=== PATIENT | male | born 1965 | race Two or more races ===

== ENCOUNTER 2021-08-02 07:52 | Outpatient (REF) | payer OTHER, SELFPAY ==
--- NOTE | ~2021-08-02 | US_ITS ---
EXAMINATION: US RETROPERITONEAL LIMITED (RENAL ONLY) CLINICAL INFORMATION: Calculus of kidney. COMPARISON: Ultrasound 02/17/2020, 02/27/2019 and 02/15/2019. TECHNIQUE: Real-time imaging of the kidneys. FINDINGS: RIGHT KIDNEY: 10.9 x 5.8 x 5.2 cm (SAG x AP x TRV). The kidney is normal in size, contour, and echogenicity. Renal cortical thickness is normal. No calculi or focal parenchymal lesions. No hydronephrosis. LEFT KIDNEY: 10.3 x 5.0 x 5.8 cm (SAG x AP x TRV). The kidney is normal in size, contour, and echogenicity. Renal cortical thickness is normal. No calculi or focal parenchymal lesions. No hydronephrosis. There are 2 anechoic cysts. A mid pole cyst measures 1.8 x 0.9 x 1.1 cm and an upper pole lateral cyst measures 1.5 x 1.4 x 1.5 cm. US/US renal BI IMPRESSION: Two anechoic cysts upper and mid pole left kidney now measuring 1.5 cm and 1.8 cm, respectively. There are no echogenic stones or hydronephrosis.
== END 2021-08-02 07:53 | disposition home or self-care (01) ==
LOC: HO.US 07:52
PROVIDERS: PCP Internal Medicine; Visit Provider Urology
DX: N20.0 Calculus of kidney (principal)
CPT/HCPCS: 76775

== ENCOUNTER → 2021-08-18 13:42 | Outpatient (BNVA) | payer OTHER, SELFPAY | PROVIDERS: Visit Provider Urology ==

== ENCOUNTER 2022-07-22 16:05 | Outpatient (REF) | payer OTHER, SELFPAY ==
--- NOTE | ~2022-07-22 | US_ITS ---
EXAMINATION: US RETROPERITONEAL LIMITED (RENAL ONLY) CLINICAL INFORMATION: Cyst of kidney, acquired. COMPARISON: Ultrasound retroperitoneal limited (renal only) 08/02/2021 TECHNIQUE: Real-time imaging of the kidneys. FINDINGS: RIGHT KIDNEY: 10.4 x 4.3 x 4.5 cm (SAG x AP x TRV). The kidney is normal in size, contour, and echogenicity. Renal cortical thickness is normal. No calculi or focal parenchymal lesions. No hydronephrosis. LEFT KIDNEY: 11.0 x 4.6 x 3.8 cm (SAG x AP x TRV). The kidney is normal in size, contour, and echogenicity. Renal cortical thickness is normal. No renal calculi or hydronephrosis. Benign-appearing renal cysts measuring up to 1.5 cm, no follow-up imaging recommended. US/US renal BI IMPRESSION: No hydronephrosis or nephrolithiasis.
== END 2022-07-22 16:06 | disposition home or self-care (01) ==
LOC: HO.US 16:05
PROVIDERS: Visit Provider Urology
DX: N28.1 Cyst of kidney, acquired (principal)
CPT/HCPCS: 76775

== ENCOUNTER → 2022-09-02 13:53 | Outpatient (BNVA) | payer OTHER, SELFPAY | PROVIDERS: Visit Provider Urology | DX: Z13.89 Encounter for screening for other disorder (principal) ==

== ENCOUNTER → 2023-03-08 13:59 | Outpatient (BNVA) | payer OTHER, SELFPAY | PROVIDERS: Visit Provider Urology | DX: N52.9 Male erectile dysfunction, unspecified (principal); N40.1 Benign prostatic hyperplasia with lower urinary tract symptoms; N13.8 Other obstructive and reflux uropathy | CPT/HCPCS: 99212 ==

== ENCOUNTER 2023-11-14 15:15 | Outpatient (AMB) | payer OTHER, SELFPAY ==
--- NOTE | 2023-11-14 15:18 | A.OFFVIS_ITS ---
Intake Intake Visit Reasons: 6M Follow Up(Confirmed) Intake Note: Patient is Present for Telephone Follow Up For Urology Med: Tadalafil Antibiotic Allergy: None Blood Thinner: None Allergies No Known Allergies [No Known Allergies*] Allergy (Verified 11/14/23 15:19) Medication List - Last Reconciled 11/14/23 by Kamran Prajapati MD tadalafil 5 mg PO DAILY PRN 90 days tadalafil 20 mg PO ONCE PRN 30 days HPI HPI Comments History of Present Illness Details Roe is a pleasant male. He is seen for the following urologic conditions - erectile dysfunction - renal cyst Welsh translation provided by qualified medical equipment technician Telemedicine Evaluation 15 min Consultation [employer] [place] Video attempted Effective response to 5 mg Cialis every day with 20 mg on demand Continue prescription Erectile dysfunction Good response to daily Cialis 5 mg with 20 mg on demand prescription provided Also works for his BPH Renal cyst Imaging showed 2x 2 cm left renal cyst Stable from prior imaging Imaging - 09/01 renal ultrasound to stable cyst Continue surveillance PFSH Medical History Erectile dysfunction Social History Alcohol intake: never Patient Tobacco Use Status: Former Tobacco user Review of Systems Const All systems reviewed & are unremarkable except as noted in HPI and below Reports no additional complaints Resp Reports no additional complaints GI Reports no additional complaints Reports as per HPI Musc Reports no additional complaints Physical Exam Telemedicine evaluation Appropriate responses Regular breathing rate and rhythm HEENT Head: Yes normal to inspection Ears: hearing grossly normal bilaterally Eyes General: appearance normal, both eyes and all related structures Neck Neck: Yes normal visual inspection Chest Chest palpation & inspection: normal inspection of the chest Resp Effort & Inspection: normal respiratory effort and able to speak in complete sentences Assessment & Plan Assessment & Plan (1) Erectile dysfunction: Code(s): N52.9 - Male erectile dysfunction, unspecified (2) BPH w urinary obs/LUTS: Code(s): N40.1 - Benign prostatic hyperplasia with lower urinary tract symptoms; N13.8 - Other obstructive and reflux uropathy Plan Six-month follow-up Medications: Refilled tadalafil 5 mg PO DAILY PRN 90 tabs 1RF sexual activity 90 days N52.9 - Male er ectile dysfunction, unspecified tadalafil On demand medication take 60 minutes before intended activity 20 mg PO ONCE PRN 30 tabs 0RF sexual activity 30 days E11.69 - Type 2 diabetes mellitus with other specified complication, N52.1 - Erectile dysfunction due to diseases classified elsewhere Patient Instructions: Imaging studies, laboratory and physical exam results were discussed and reviewed in detail. No major barriers to patient understanding were identified. An opportunity to ask questions regarding the treatment plan was provided. All questions were answered. The patient expressed understanding and agreement with the above treatment plan. The patient is aware they should contact our office by phone for worsening of their current condition or the appearance of new urologic symptoms. Compliance is encouraged with any medications and followup testing that is ordered. It is a privilege to participate in the urologic care of your patient. If you have any questions or concerns regarding treatment for the above conditions, or other urologic issues, please do not hesitate to contact me. The office telephone contact is [phone]. This note is constructed using voice recognition software. While every effort has been made to ensure accuracy payroll and benefits manager errors may have been included. Yours sincerely, Dr Kamran Prajapati MD, [facility] - Urology Providers of Expert, Compassionate Care for the Genitourinary System Telehealth Telehealth Location of provider rendering services: practice address Location of patient: address on file Patient Identification confirmed using: Name, : Yes Telehealth method: video Patient verbally consented to treatment: Yes Patient verbally consented to billing insurance company: Yes Patient informed of any privacy concerns related to visit: Yes Coding Level of Care Code Tele Est Pt Level 3 (70597) Diagnoses Erectile dysfunction N52.9 BPH w urinary obs/LUTS N40.1; N13.8
== END 2023-11-14 16:24 | disposition home or self-care (01) ==
LOC: HO.HUSH 15:16
PROVIDERS: Visit Provider Urology
DX: N52.9 Male erectile dysfunction, unspecified (principal); N40.1 Benign prostatic hyperplasia with lower urinary tract symptoms; N13.8 Other obstructive and reflux uropathy
CPT/HCPCS: 99213

== ENCOUNTER → 2023-11-14 15:15 | Outpatient (BNVA) | payer OTHER, SELFPAY | PROVIDERS: Visit Provider Urology ==

== ENCOUNTER 2024-03-11 06:16 | Emergency (ER) | payer OTHER, SELFPAY ==
--- NOTE | ~2024-03-11 | CT_ITS ---
EXAMINATION: CT ABDOMEN AND PELVIS WITHOUT CONTRAST CLINICAL INFORMATION: Left flank pain and hematuria COMPARISON: Renal ultrasound 07/22/2022 TECHNIQUE: Multidetector volumetric imaging was performed from the superior aspect of the liver through the pubic symphysis. Sagittal and coronal reformatted images were obtained on the technologist's workstation. This CT examination was performed using dose optimization techniques as appropriate, variously including the following: *Automated exposure control *Adjustment of mA and/or kV according to patient size (this includes techniques or standardized protocols for targeted exams where dose is matched to indication/reason for exam; i.e. extremities or head) *Use of iterative reconstruction technique DLP: 388 mGy-cm FINDINGS: LUNG BASES: The visualized lung bases are unremarkable. LIVER, GALLBLADDER, AND BILIARY TREE: The liver is normal in size, shape, and attenuation. No focal hepatic lesion or biliary ductal dilatation is present. The gallbladder is unremarkable with no evidence of radiopaque gallstones, gallbladder wall thickening, or obvious pericholecystic inflammatory changes. PANCREAS: Unremarkable. SPLEEN: Unremarkable. ADRENAL GLANDS: Unremarkable. KIDNEYS AND URETERS: The kidneys are normal in size, shape, and attenuation. There is an obstructing left mid ureteral calculus measuring 4 mm in size associated with hydronephrosis and perinephric stranding. There is a nonobstructing 2 mm calculus at the lower pole of the left kidney. There is a 2 mm nonobstructing calculus also at the lower pole of the right kidney. No right-sided hydronephrosis. 2 benign Bosniak class I renal cysts are noted which require no additional imaging or follow-up. No solid renal masses are seen. BLADDER: Unremarkable. GASTROINTESTINAL TRACT: The small and large bowel are unremarkable. There is no evidence of appendicitis. ABDOMINAL WALL: No significant hernia is appreciated. LYMPH NODES: Normal. VASCULAR: Unremarkable. PELVIC VISCERA: Unremarkable. OSSEOUS STRUCTURES: Unremarkable. CT/CT abdomen pelvis wo IV con IMPRESSION: 1. Obstructing 4 mm left mid ureteral calculus with associated hydronephrosis and perinephric stranding. 2. Bilateral nonobstructing small 2mm renal calculi. Fleischner guidelines were followed.
[2024-03-11 06:24] VITALS: BP 137/83; PULSE 71; RESP 17; TEMP 36.5; O2SAT 97; BMI 23.2
[2024-03-11 07:27] LABS: Appearance Urine Clear; Color Urine Yellow; Glucose Urine UA Negative (Negative); Leukocyte Esterase Urine Negative (Negative); Nitrite Urine Negative (Negative); Specific Gravity - Urine <= 1.005 (1.005-1.025); UMIC TRIGGER UACC YES; Urine Blood Small (1+) (Negative); Urine Ketones Negative (Negative); Urine Protein Negative (Neg-Trace)
[2024-03-11 07:29] LABS: MANUAL DIFF FLAG NO
--- NOTE | 2024-03-11 07:31 | ED.ABDPAIN ---
HPI - Abdominal Pain General Chief Complaint: Abdominal Pain Stated Complaint: kidney stone? Time Seen by Provider: 03/11/24 07:31 Source: patient Mode of arrival: ambulatory Limitations: no limitations History of Present Illness ED Provider: Margie VASQUEZ HPI narrative: This is a 58-year-old male history of kidney stones, erectile dysfunction, renal cyst, BPH with urinary obstruction/ LUTS presenting w/ L sided flank pain and blood in urine X 4 days. Patient reprots he has a hx of kidney stones and this feels like his last kidney stone. Patient denies nausea, vomiting, abd pain, headache, vision changes, dizziness, weakness, fevers, chills. Related Data Previous Rx's ?Medication ?Instructions ?Recorded tadalafil 20 mg tablet 20 mg PO ONCE PRN sexual activity 11/14/23 30 days #30 tabs tadalafil 5 mg tablet 5 mg PO DAILY PRN sexual activity 11/14/23 90 days #90 tabs ketorolac 10 mg tablet 10 mg PO TID PRN pain 5 days #15 03/11/24 tabs levofloxacin 750 mg tablet 750 mg PO DAILY 7 days #7 tabs 03/11/24 prednisone 20 mg tablet 20 mg PO DAILY 5 days #5 tabs 03/11/24 tamsulosin 0.4 mg capsule (Flomax) 0.4 mg PO DAILY 2 weeks #14 caps 03/11/24 Allergies Allergy/AdvReac Type Severity Reaction Status Date / Time No Known Allergies Allergy Verified 03/11/24 06:27 [No Known Allergies*] Review of Systems Review of Systems Yes all other systems are reviewed and are negative PMFSH Past Medical History Attestation statement: The following information was validated with the patient. Source: old records reviewed and nursing notes reviewed Medical History Erectile dysfunction Social History Social History Alcohol intake: never Patient Tobacco Use Status: Former Tobacco user Advance Directives: No Do you have a plan to hurt others: No Plan Physical Exam ED Vital Signs: Vital Signs - 24 hr 03/11/24 06:24 03/11/24 10:19 Temperature 97.7 F 97.6 F Pulse Rate 71 62 Respiratory Rate 17 16 Blood Pressure 137/83 114/72 Pulse Oximetry 97 96 Oxygen Delivery Method Room Air Room Air BMI result Body Mass Index 23.2 vss Appearance: Alert.? Oriented X3.? No acute distress.? Head: Normocephalic, atraumatic, no step-offs or deformities Eyes: Pupils equal, round and reactive to light.? ENT: Pharynx normal.? Neck: Normal inspection.? Neck supple.? CVS: Normal heart rate and rhythm.? Pulses normal.? Respiratory: No respiratory distress.? Breath sounds normal.? Abdomen: Soft and nontender.? Skin: Skin warm and dry.? Normal skin color.? Normal skin turgor.? Extremities: No lower extremity edema.? No calf ttp. 5/5 strength to bilateral upper and lower extremities Back: No midline tenderness, no C-spine tenderness, full range of motion, + L sided CVA tenderness on exam Neuro: Oriented X 3.? No motor deficit.? No sensory deficit. CN 2-12 intact Course Reevaluation(s) Reevaluation #1: CBC unremarkable. Chemistry no acute findings requiring intervention. UA with small amount of blood. CT abdomen pelvis with obstructing 4 mm left mid ureteral calculus with associated hydronephrosis and perinephric stranding. Bilateral nonobstructing small 2 mm renal calculi. Patient does have left-sided CVA tenderness will cover with Levaquin. [place] text Urology for input. Time: 08:49 Reevaluation #2: Upon re-evaluation pain is controlled with Toradol Time: 08:51 Reevaluation #3: Urology recommends another L of fluid and then revaluation. If pain well controlled can DC w/ levofloxacin, flomax and outpatient follow up. Time: 08:53 Medical Decision Making Medical Decision Making [facility] Narrative: 0734 58-year-old male presents with left-sided flank pain x4 days and blood in urine. History of kidney stones. Physical exam concerning for left-sided CVA tenderness. History and physical exam concerning for kidney stone versus obstructive uropathy versus hematuria versus pyelonephritis. Unlikely acute abdomen, cauda equina, epidural abscess, cord compression. Will rule out metabolic derangements, urinary infection. Plan labs, imaging, urine. Differential Diagnosis Differential Diagnoses: The differential diagnosis associated with the presentation includes History and physical exam concerning for kidney stone versus obstructive uropathy versus hematuria versus pyelonephritis. Unlikely acute abdomen, cauda equina, epidural abscess, cord compression. Will rule out metabolic derangements, urinary infection. Admission/Observation Consideration of admission/observation: Escalation of care including admission/observation considered Possible Lab Data MDM Lab Attestation statement: I reviewed the patient's lab results. 03/11/24 07:25 03/11/24 07:25 Labs: Lab Results 03/11/24 03/11/24 Range/Units 07:17 07:25 WBC 8.9 (4.8-10.8) X10*3/uL RBC 4.78 (4.60-5.80) X10*6/uL Hgb 15.2 (14.0-18.0) g/dl Hct 44.2 (42.0-52.0) % MCV 92.5 (80.0-98.0) fL MCH 31.8 (27.0-33.0) pg MCHC 34.4 (31.0-36.0) g/dl RDW 12.0 (11.0-16.0) % Plt Count 241 (160-400) X10*3/uL MPV 9.8 (9.4-12.4) fL Immature Gran % (Auto) 0.2 (0.0-0.4) % Neut % (Auto) 71.9 (45-73) % Lymph % (Auto) 17.6 L (20-40) % Glenn % (Auto) 9.3 (2-11) % Eos % (Auto) 0.8 (0-4) % Baso % (Auto) 0.2 (0-2) % Lymph # (Auto) 1.6 (1.2-4.9) X10*3/uL Glenn # (Auto) 0.8 (0.1-1.2) X10*3/uL Eos # (Auto) 0.1 (0.0-0.4) X10*3/uL Baso # (Auto) 0.0 (0.0-0.2) X10*3/uL Abs Immat Gran (auto) 0.02 (0.00-0.03) X10*3/uL Absolute Neuts (auto) 6.4 (2.0-8.3) x10*3/uL Absolute Nucleated RBC 0.000 (0.0-0.012) X10*3/uL Nucleated RBC % (auto) 0.0 (0.0-0.2) /100WBC Sodium 139 (135-145) mmol/L Potassium 4.6 (3.3-5.1) mmol/L Chloride 106 (96-108) mmol/L Carbon Dioxide 26 (22-29) mmol/L Anion Gap 12 (12-20) BUN 18 H (9-16) mg/dL Creatinine 1.13 (0.5-1.4) mg/dL Estim Creat Clear Calc 77.7 Estimated GFR > 60 Random Glucose 102 (60-115) mg/dL Calcium 9.4 (8.4-10.2) mg/dL Magnesium 2.2 (1.6-2.6) mg/dL Total Bilirubin 0.3 (0.0-1.0) mg/dL Direct Bilirubin 0.1 (0.0-0.5) mg/dL AST 23 (5-37) U/L ALT 17 (0-40) U/L Alkaline Phosphatase 88 (39-117) U/L Total Protein 7.6 (6.5-8.0) g/dL Albumin 4.1 (3.5-5.0) g/dL Lipase 19 (8-78) U/L Urine Color Yellow Urine Appearance Clear Urine pH 6.0 (5.0-9.0) Ur Specific [place] <= 1.005 (1.005-1.025) Urine Protein Negative (Neg-Trace) mg/dL Urine Glucose (UA) Negative (Negative) mg/dL Urine Ketones Negative (Negative) mg/dL Urine Blood Small (1+) H (Negative) Urine Nitrite Negative (Negative) Ur Leukocyte Esterase Negative (Negative) Urine RBC 0-2 (0-2) /HPF Urine WBC 0-5 (0-5) /HPF Ur Squamous Epith Cells 0-2 (0-2) /HPF Urine Bacteria None Seen (None Seen) Hyaline Casts 0-2 (0-2) /LPF Independent Interpretation I performed an independent interpretation of an: CT Scan (CT/CT abdomen pelvis wo IV con IMPRESSION: 1. Obstructing 4 mm left mid ureteral calculus with associated hydronephrosis and perinephric stranding. 2. Bilateral nonobstructing small 2mm renal calculi. Fleischner guidelines were followed.) Radiology Impression Discussion of test interpretation with radiology: I have reviewed the radiologist's reading. Medications Administered Discontinued Medications Generic Name Dose Route Start Last Admin Trade Name Moody PRN Reason Stop Dose Admin Sodium Chloride 500 mls @ 500 mls/hr 03/11/24 07:45 03/11/24 09:22 Ns IV 03/11/24 08:44 Infused .Q1H CINDY Infusion Sodium Chloride 1,000 mls @ 999 mls/hr 03/11/24 07:45 03/11/24 09:23 Ns IV 03/11/24 08:45 Infused .Q1H1M CINDY Infusion Ketorolac Tromethamine 30 mg 03/11/24 07:57 03/11/24 08:03 Ketorolac Tromethamine 15 Mg/Ml Vial IVPUSH 03/11/24 07:58 30 mg ONCE ONE Administration Prednisone 20 mg 03/11/24 07:31 03/11/24 08:03 Prednisone 20 Mg Tablet PO 03/11/24 07:32 20 mg ONCE ONE Administration Tamsulosin HCl 0.4 mg 03/11/24 07:31 03/11/24 08:03 Tamsulosin Hcl 0.4 Mg Capsule PO 03/11/24 07:32 0.4 mg ONCE ONE Administration Critical Care Time Critical Care Time Critical Care Time: Yes Total Critical Care Time: 35 Attestation: I attest to this time spent taking care of the patient, obtaining history, physical, reviewing labs, imaging, speaking to my attending, specialist or hospitalist. Discharge Plan Discharge Clinical Impression: Calculus of kidney Patient Disposition: Home, Self-Care Instructions: Kidney Stones (ED) Additional Instructions: Take your medications as prescribed. If you were prescribed antibiotics today, it is important that you take your medication to their entirety, do not skip any doses, do not finish them early. Follow-up with your primary care provider this week. Return to the emergency department with new or worsening symptoms. Such as fevers, chills, chest pain, shortness of breath, nausea, vomiting, dizziness, headache, vision changes, lethargy In case of emergency call 911 Toradol has been sent to your pharmacy, you tolerated this well in the department. Please take this as prescribed do not take this with ibuprofen, or other NSAIDs, do not mix this with alcohol. Side effects of this medication including increased risk for bleeding and possible kidney injury. CT/CT abdomen pelvis wo IV con IMPRESSION: 1. Obstructing 4 mm left mid ureteral calculus with associated hydronephrosis and perinephric stranding. 2. Bilateral nonobstructing small 2mm renal calculi. Fleischner guidelines were followed. Prescriptions: New ketorolac 10 mg tablet 10 mg PO TID PRN (Reason: pain) 5 Days Qty: 15 0RF levofloxacin 750 mg tablet 750 mg PO DAILY 7 Days Qty: 7 0RF tamsulosin [Flomax] 0.4 mg capsule 0.4 mg PO DAILY 14 Days Qty: 14 0RF prednisone 20 mg tablet 20 mg PO DAILY 5 Days Qty: 5 0RF No Action tadalafil 5 mg tablet 5 mg PO DAILY PRN (Reason: sexual activity) 90 Days Qty: 90 1RF tadalafil 20 mg tablet 20 mg PO ONCE PRN (Reason: sexual activity) 30 Days Qty: 30 0RF Rx Instructions: On demand medication take 60 minutes before intended activity Referrals: [facility] [place] [facility] Services [Provider Group] - 1 day Physician,Unknown J [Primary Care Provider] - 2 days Stand Alone Forms: Work/School Release Print Language: Icelandic
[2024-03-11 07:36] LABS: Basophils Percent Auto 0.2 % (0-2); Eosinophils Absolute Auto 0.1 X10*3/uL (0.0-0.4); Eosinophils Percent Auto 0.8 % (0-4); Hematocrit 44.2 % (42.0-52.0); Hemoglobin 15.2 g/dl (14.0-18.0); Imm Gran Abs Auto 0.02 X10*3/uL (0.00-0.03); Imm Gran Pct Auto 0.2 % (0.0-0.4); Lymphocytes Absolute Auto 1.6 X10*3/uL (1.2-4.9); Lymphocytes Percent Auto 17.6 % (20-40); Mean Corpuscular HGB Conc 34.4 g/dl (31.0-36.0); Mean Corpuscular Hemoglobin 31.8 pg (27.0-33.0); Mean Corpuscular Volume 92.5 fL (80.0-98.0); Mean Platelet Volume 9.8 fL (9.4-12.4); Monocytes Absolute Auto 0.8 X10*3/uL (0.1-1.2); Monocytes Percent Auto 9.3 % (2-11); Neutrophils Absolute Auto 6.4 x10*3/uL (2.0-8.3); Neutrophils Percent Auto 71.9 % (45-73); Platelet Count 241 X10*3/uL (160-400); Red Blood Count 4.78 X10*6/uL (4.60-5.80); White Blood Count 8.9 X10*3/uL (4.8-10.8)
[2024-03-11 07:38] LABS: Bacteria Urine None Seen (None Seen); Hyaline Casts Urine 0-2 /LPF (0-2); RBC Urine 0-2 /HPF (0-2); Squamous Epithelial Cell Urine 0-2 /HPF (0-2); WBC Urine 0-5 /HPF (0-5)
[2024-03-11 07:44] LABS: Alanine Aminotransferase 17 U/L (0-40); Albumin Level 4.1 g/dL (3.5-5.0); Alkaline Phosphatase 88 U/L (39-117); Anion Gap 12 (12-20); Aspartate Amino Transferase 23 U/L (5-37); Bilirubin Direct 0.1 mg/dL (0.0-0.5); Bilirubin Total 0.3 mg/dL (0.0-1.0); Blood Urea Nitrogen 18 mg/dL (9-16); Calcium 9.4 mg/dL (8.4-10.2); Carbon Dioxide 26 mmol/L (22-29); Chloride 106 mmol/L (96-108); Creatinine Clr Calc Pharmacy 77.7; Estimated Glomerular Filt Rate > 60; Glucose Random 102 mg/dL (60-115); Lipase 19 U/L (8-78); Magnesium 2.2 mg/dL (1.6-2.6); Potassium 4.6 mmol/L (3.3-5.1); Sodium 139 mmol/L (135-145); Total Protein 7.6 g/dL (6.5-8.0)
[2024-03-11] MEDS: Tamsulosin HCL 0.4 MG CAPSULE PO (08:03)
[2024-03-11] MEDS: Ketorolac Tromethamine 15 MG/ML VIAL 30 MG IVPUSH (08:03)
[2024-03-11] MEDS: predniSONE 20 MG TABLET PO (08:03)
[2024-03-11] MEDS: 0.9 % Sodium Chloride 1,000 ML 999 ML IV ×3 (08:06→10:48)
[2024-03-11] MEDS: 0.9 % Sodium Chloride 500 ML IV (08:10)
[2024-03-11 10:19] VITALS: BP 114/72; PULSE 62; RESP 16; TEMP 36.4; O2SAT 96
[2024-03-11] MEDS: levoFLOXacin/D5W 500 MG/100 ML PIGGYBACK 100 MG IV (10:46)
[2024-03-11 11:39] VITALS: BP 127/77; PULSE 71; RESP 16; TEMP 36.8; O2SAT 98
[2024-03-11 11:54] VITALS: BP 127/77; PULSE 78; RESP 16; TEMP 36.9; O2SAT 98
[2024-03-11 11:58] VITALS: BP 127/77; PULSE 78; RESP 16; TEMP 36.9; O2SAT 98
== END 2024-03-11 12:05 | disposition home or self-care (01) ==
PROVIDERS: Emergency Medicine; Emergency Provider Emergency Medicine
DX: N20.0 Calculus of kidney (principal); R11.2 Nausea with vomiting, unspecified; Z79.899 Other long term (current) drug therapy
CPT/HCPCS: 36415; 74176; 80048; 80076; 81001; 83690; 83735; 85025; 96361; 96365; 96375; 99284; J1885; J1956

== ENCOUNTER 2024-05-17 15:32 | Outpatient (AMB) | payer OTHER, SELFPAY ==
--- NOTE | 2024-05-17 15:41 | MHC.OFFVIS ---
Intake Visit Reasons: 6 month follow up Intake Note: Patient is Present for Follow Up/ER Visit for Stones 03/11/24 Urology Medication: Tadalafil,Tamsulosin Antibiotic Allergies:None Blood Thinners: None Patient was at [facility] 03/11/2024 for Kidney stones Patient states that he has some flank pain on and off Did pass a stone stone will be sent to lab for review \ Accompanied by: Self / Same As Patient Allergies No Known Allergies [No Known Allergies*] Allergy (Verified 05/17/24 15:43) HPI Comments Details: Roe is a pleasant male. He is seen for the following urologic conditions - erectile dysfunction - renal cyst Yemeni translation provided by qualified medical records field technician Has brought stone to office Sent for analysis Effective response to 5 mg Cialis every day with 20 mg on demand Continue prescription Nephrolithiasis Stone passage 04/03 Obstructing 4 mm left mid ureteral calculus with associated hydronephrosis and perinephric stranding. Erectile dysfunction Good response to daily Cialis 5 mg with 20 mg on demand prescription provided Also works for his BPH Renal cyst Imaging showed 2x 2 cm left renal cyst Stable from prior imaging Imaging - 09/01 renal ultrasound to stable cyst Continue surveillance [facility] Medical History Erectile dysfunction Social History Alcohol intake: never Patient Tobacco Use Status: Former Tobacco user Review of Systems Const Denies chills and Denies fever(s) Card Reports no additional complaints and Denies syncope Resp Denies cough GI Denies abdominal pain and Denies heartburn Reports as per HPI and Denies change in libido Neuro Denies syncope Psych Denies change in libido Endo Denies change in libido Physical Exam Const General: cooperative, healthy appearing, comfortable and no acute distress Orientation/consciousness: patient oriented x3 HEENT Face and sinus: Yes normal facial exam Mouth: moist mucous membranes Neck Neck: Yes normal visual inspection, Yes full ROM and Yes trachea midline Chest Chest palpation & inspection: normal inspection of the chest Resp Effort & Inspection: normal respiratory effort, able to speak in complete sentences and no respiratory distress GI Inspection: Yes normal to inspection Rectal Exam - Male: Yes normal sphincter tone and Yes prostate normal Male General Exam: Yes normal external exam Penis: normal penis and circumcised Meatus: meatus normal Scrotum: scrotum normal Testes: Testes normal Back/Spine/Pelvis Cervical Spine: normal cervical lordosis Thoracic/Lumbar Spine: thoracic and lumbar spine normal to inspection Skin General skin exam: no rashes or lesions noted Neuro General: patient oriented x3, gait normal, tone normal and moves all extremities Extrem General: Yes normal to inspection and Yes capillary refill normal Assessment & Plan Assessment & Plan (1) Calculus of kidney: Code(s): N20.0 - Calculus of kidney Category: Medical (2) Erectile dysfunction: Code(s): N52.9 - Male erectile dysfunction, unspecified Category: Medical Plan Renal ultrasound six-month Orders: Orders US renal BI 6 Months N20.0 - Calculus of kidney Surgical 05/17/24 N20.0 - Calculus of kidney Medications: New pyridoxine (vitamin B6) 50 mg PO DAILY 90 tabs 1RF 90 days N20.0 - Calculus of kidney Patient Instructions: Imaging studies, laboratory and physical exam results were discussed and reviewed in detail. No major barriers to patient understanding were identified. An opportunity to ask questions regarding the treatment plan was provided. All questions were answered. The patient expressed understanding and agreement with the above treatment plan. The patient is aware they should contact our office by phone for worsening of their current condition or the appearance of new urologic symptoms. Compliance is encouraged with any medications and followup testing that is ordered. It is a privilege to participate in the urologic care of your patient. If you have any questions or concerns regarding treatment for the above conditions, or other urologic issues, please do not hesitate to contact me. The office telephone contact is [phone]. This note is constructed using voice recognition software. While every effort has been made to ensure accuracy interior design coordinator errors may have been included. Yours sincerely, Dr Kamran Prajapati MD, [facility] - Urology Providers of Expert, Compassionate Care for the Genitourinary System Coding Level of Care Code Est Pt Level 3 (66581) Diagnoses Calculus of kidney N20.0 Erectile dysfunction N52.9
== END 2024-05-17 16:11 | disposition home or self-care (01) ==
PROVIDERS: Visit Provider Urology
DX: N20.0 Calculus of kidney (principal); N52.9 Male erectile dysfunction, unspecified
CPT/HCPCS: 99213

== ENCOUNTER 2024-05-17 15:32 | Outpatient (REF) | payer OTHER, SELFPAY ==
[2024-05-25 19:43] LABS: Stone Source KIDNEY STONE
== END 2024-05-17 15:33 | disposition home or self-care (01) ==
LOC: HO.LAB 15:32
PROVIDERS: Visit Provider Urology
DX: N20.0 Calculus of kidney (principal)
CPT/HCPCS: 82365; 88300; 99212

== ENCOUNTER 2024-11-12 13:01 | Outpatient (REF) | payer OTHER, SELFPAY ==
--- NOTE | ~2024-11-12 | US_ITS ---
CLINICAL HISTORY: N20.0 - Calculus of kidney Renal ultrasound Comparison: None Findings: The kidneys are normal in echotexture bilaterally. No hydronephrosis. No identified nephrolithiasis. The right kidney is normal in size, measuring 9.9 cm in length. The left kidney is normal in size, measuring 10.5 cm in length. Simple cysts measuring 2.5 x 1.9 x 2.7 cm 1.2 x 0.9 x 1.0 cm in the midportion. Impression: No hydronephrosis. No identified nephrolithiasis. This document has been electronically signed by: Philomena Guzman MD on 11/13/2024 16:19:28
--- OUTSIDE RECORDS SUMMARY | 2024-11-12 16:12 | XMS_ITS | Encounter Summary ---
Author Organization [employer] [facility] Address [address] [place] [address] Care Team Providers Care Coin Teller Name Role Phone Unavailable Primary Care Provider Unavailabl e Encounter Details Date Type Department Care Team (Latest Contact Info) Description 08/28/2019 Abstract [facility] CONVERSIONS Dental, Provider, DDS Social History Tobacco Use Types Packs/Day Years Used Date Smoking Tobacco: Never Assessed Sex and Gender Information Value Date Recorded Sex Assigned at Male 07/11/2022 10:28 AM EDT Legal Sex Male 10:28 AM EDT Gender Identity Male 10/05/2023 11:45 AM EST Sexual Orientation Straight 10/05/2023 11 :45 AM EST documented as of this encounter Plan of Treatment Upcoming Encounters Date Type Department Care Team (Late st Contact Info) Description 02/06/2025 8:00 AM EDT Office Visit [facility] ADULT DENTAL [address] [place] [address] Makenzie Tian documented as of this encounter Visit Diagnoses Not on filedocumented in this encounter
--- OUTSIDE RECORDS SUMMARY | 2024-11-12 16:12 | XMS_ITS | Clinical Summary ---
Author Organization [facility] Address [address] [place] [address] [address] [place] [address] Care Team Providers Care Review Appraiser Name Role Phone Unavailable Primary Care Provider Unavailabl e Allergies No known active allergies Medications No known medications Active Problems Problem Noted Date Diagnosed Date Chronic periodontitis 11/15/2023 Acute gingival inflammation 11/15/2023 Dental calculus 11/15/2023 Missing teeth, acquired 11/15/2023 Gingival bleeding 11/15/2023 Social History Tobacco Use Types Packs/Day Years Used Date Smoking Tobacco: Former Cigarettes Smokeless Tobacco: Never Tobacco Cessation:Counseling Given: Not Answered Alcohol Use Standard Drinks/Week Comments Never 0 (1 standard drink = 0.6 oz pur e alcohol) Sex and Gender Information Value Date Recorded Sex Assigned at Male 07/11/2022 10:28 AM EDT Legal Sex Male 10:28 AM EDT Gender Identity Male 10/05/2023 11:45 AM EST Sexual Orientation Straight 10/05/2023 11 :45 AM EST Last Filed Vital Signs Vital Sign Reading Time Taken Comments Blood Pressure 124/70 12/15/2023 8:51 AM EDT Pulse 68 12/15/2023 8:51 AM EDT Temperature - - Respiratory Rate - - Oxygen Saturation - - Inhaled Oxygen Concentration - - Weight - - Height - - Body Mass Index - - Plan of Treatment Upcoming Encounters Date Type Department Care Team (Late st Contact Info) Description 02/06/2025 8:00 AM EDT Office Visit [facility] ADULT DENTAL [address] [place], [place] [id number] Makenzie Tina Health Maintenance Due Date Last Done Comments CT Colonography 1967 Colonoscopy 1967 Colorectal Cancer Screening 1967 Depression Screening 1967 FIT DNA/Cologuard 1967 FIT 1967 FOBT 1967 HIV Screening 1967 Lipid Panel 1967 SDOH Screening 1967 Sigmoidoscopy 1967 Alcohol/Substance Use Screening 1979 Hepatitis C Screening 1985 Hepatitis B Vaccines (1 of 3 - 19+ 3-dose series) 1986 Pneumococcal Vaccine: 50+ Years (1 of 1 - PCV) 2017 Zoster Vaccines (1 of 2) 2017 Dental Oral Exam 04/26/2024 10/26/2023, 06/21/2019 COVID-19 Vaccine (2 - season) 2024 08/24/2021 Influenza Vaccine (#1) 2024 Dental Prophylaxis 05/18/2024 11/15/2023, 08/28/2019 Tobacco Screening 12/14/2024 12/15/2023 Dental X-Ray: Bitewings 12/15/2024 12/15/19 24, 12/08/2023, 10/26/2023, Additional history exists Dental X-Ray: Full Mouth 10/27/2026 10/26/2023, 06/11 DTaP/Tdap/Td Vaccines (3 - Td or Tdap) 04/12/2033 04/12/2023, 01/27/2012 RSV Patients and Patients Aged 60 years or older (1 - 1-dose 75+ series) 2042 HIB Vaccines Aged Out No longer eligi ble based on patient's age to complete this topic HPV Vaccines Aged Out No longer eligi ble based on patient's age to complete this topic Hepatitis A Vaccines Aged Out No long er eligible based on patient's age to complete this topic IPV Vaccines Aged Out No longer eligi ble based on patient's age to complete this topic Meningococcal Vaccine Aged Out No richard jerzy eligible based on patient's age to complete this topic RSV under 20 months Aged Out No longe r eligible based on patient's age to complete this topic Rotavirus Vaccines Aged Out No longer eligible based on patient's age to complete this topic Procedures Procedure Name Priority Date/Time Associated Diagnosis Comments BITEWINGS - 2 RADIOGRAPHIC IMAGES Routine 12/15/2023 9:00 AM EDT PROPHYLAXIS - ADULT Routine 11/15/2023 9 :00 AM EST Chronic periodontitis Acute gingival inflammation Dental calculus Gingival bleeding INTRAORAL - COMPLETE SERIES OF RADIOGRAPHIC IMAGES Routine 10/26/2023 3:00 PM EST PERIODIC ORAL EVALUATION - ESTABLISHED PATIENT Routine 10/26/2023 3:00 PM EST from Last 3 Months or Most Recently Relevant to Health Maintenance Insurance [facility] MEDICAID STAND ADULT
== END 2024-11-12 13:02 | disposition home or self-care (01) ==
LOC: HO.US 13:01
PROVIDERS: PCP Internal Medicine; Visit Provider Urology
DX: N20.0 Calculus of kidney (principal)
CPT/HCPCS: 76775

== ENCOUNTER → 2024-11-12 13:03 | Outpatient (BNV) | payer OTHER, SELFPAY | PROVIDERS: PCP Internal Medicine; Visit Provider Radiology Diagnostic Radiology | DX: N20.0 Calculus of kidney (principal) | CPT/HCPCS: 76775 ==

== ENCOUNTER 2025-01-01 10:48 | Outpatient (AMB) | payer OTHER, SELFPAY ==
--- NOTE | 2025-01-01 10:51 | MHC.OFFVIS ---
Intake Visit Reasons: 6 mon follow up US Intake Note: Patient is present for 6M/US Urology Medication:TADALAFIL,VITAMIN B6,TAMSULOSIN Antibiotic Allergy:NONE Blood Thinner:NONE Bar Assistant Required: No Allergies No Known Allergies [No Known Allergies*] Allergy (Verified 01/01/25 10:52) HPI Comments Details: Roe is a pleasant male. He is seen for the following urologic conditions - erectile dysfunction - renal cyst No stone seen on current renal ultrasound - continue fluid intake plus vitamin B6 Effective response to 5 mg Cialis every day with 20 mg on demand Continue prescription Nephrolithiasis Stone passage 04/03 Obstructing 4 mm left mid ureteral calculus with associated hydronephrosis and perinephric stranding. Stone composition - calcium oxalate monohydrate Erectile dysfunction Good response to daily Cialis 5 mg with 20 mg on demand prescription provided Also works for his BPH Renal cyst Imaging showed 2x 2 cm left renal cyst Stable from prior imaging Imaging - 09/01 renal ultrasound to stable cyst Continue surveillance PFSH Medical History Erectile dysfunction Social History Alcohol intake: never Patient Tobacco Use Status: Former Tobacco user Review of Systems Const Denies chills and Denies fever(s) Card Reports no additional complaints and Denies syncope Resp Denies cough GI Denies abdominal pain and Denies heartburn Reports as per HPI and Denies change in libido Neuro Denies syncope Psych Denies change in libido Endo Denies change in libido Physical Exam Const General: cooperative, healthy appearing, comfortable and no acute distress Orientation/consciousness: patient oriented x3 HEENT Face and sinus: Yes normal facial exam Mouth: moist mucous membranes Neck Neck: Yes normal visual inspection, Yes full ROM and Yes trachea midline Chest Chest palpation & inspection: normal inspection of the chest Resp Effort & Inspection: normal respiratory effort, able to speak in complete sentences and no respiratory distress GI Inspection: Yes normal to inspection Back/Spine/Pelvis Cervical Spine: normal cervical lordosis Thoracic/Lumbar Spine: thoracic and lumbar spine normal to inspection Skin General skin exam: no rashes or lesions noted Neuro General: patient oriented x3, gait normal, tone normal and moves all extremities Extrem General: Yes normal to inspection and Yes capillary refill normal Assessment & Plan Assessment & Plan (1) BPH w urinary obs/LUTS: Code(s): N40.1 - Benign prostatic hyperplasia with lower urinary tract symptoms; N13.8 - Other obstructive and reflux uropathy Category: Medical (2) Erectile dysfunction: Code(s): N52.9 - Male erectile dysfunction, unspecified Category: Medical (3) Calculus of kidney: Code(s): N20.0 - Calculus of kidney Category: Medical Plan 12 month follow-up renal ultrasound with PSA Prescriptions refill Orders: Orders US renal BI 12 Months N20.0 - Calculus of kidney Prostate Specific Antigen 12 Months N20.0 - Calculus of kidney Medications: Refilled tadalafil 5 mg PO DAILY PRN 90 tabs 3RF sexual activity 90 days N52.9 - Male erectile dysfunction, unspecified tadalafil On demand medication take 60 minutes before intended activity 20 mg PO ONCE PRN 30 tabs 0RF sexual activity 30 days E11.69 - Type 2 diabetes mellitus with other specified complication, N52.1 - Erectile dysfunction due to diseases classified elsewhere pyridoxine (vitamin B6) 50 mg PO DAILY 90 tabs 1RF 90 days N20.0 - Calculus of kidney Discontinued tamsulosin (Flomax) Discontinued Reason: Patient Completed Course 0.4 mg PO DAILY 2 weeks 14 caps 0RF Patient Instructions: This note is constructed using voice recognition software. While every effort has been made to ensure accuracy estimator jewelry errors may have been included. Imaging studies, laboratory and physical exam results were discussed and reviewed in detail. No major barriers to patient understanding were identified. An opportunity to ask questions regarding the treatment plan was provided. All questions were answered. The patient expressed understanding and agreement with the above treatment plan. The patient is aware they should contact our office by phone for worsening of their current condition or the appearance of new urologic symptoms. Compliance is encouraged with any medications and followup testing that is ordered. It is a privilege to participate in the urologic care of your patient. If you have any questions or concerns regarding treatment for the above conditions, or other urologic issues, please do not hesitate to contact me. The office telephone contact is [phone]. Sincerely, Dr Kamran Prajapati MD, [facility] - Urology Compassionate Specialist Care for the Genitourinary System Coding Level of Care Code Est Pt Level 3 (16870) Diagnoses BPH w urinary obs/LUTS N40.1; N13.8 Erectile dysfunction N52.9 Calculus of kidney N20.0
--- OUTSIDE RECORDS SUMMARY | 2025-01-01 12:53 | XMS_ITS | Encounter Summary ---
Author Organization [employer] [facility] Address [address] [place] [address] Care Team Providers Care Plant Physiology Teacher Name Role Phone Unavailable Primary Care Provider Unavailabl e Encounter Details Date Type Department Care Team (Latest Contact Info) Description 08/28/2019 Abstract [facility] CONVERSIONS Dental, Provider, DDS Social History Tobacco [...] Description 02/06/2025 8:00 AM EDT Office Visit [facility] ADULT DENTAL [address] [place] [address] Makenzie Tian documented as of this encounter Visit Diagnoses Not on filedocumented in this encounter
--- OUTSIDE RECORDS SUMMARY | 2025-01-01 12:53 | XMS_ITS | Clinical Summary ---
Author Organization [employer] [facility] Address [address] [place] [address] [address] [place] [address] Care Team Providers Care Foreign Exchange Trader Name Role Phone Unavailable Primary Care Provider [...] Description 02/06/2025 8:00 AM EDT Office Visit [facility] ADULT DENTAL [address] [place], [place] [phone] Makenzie Tian Health Maintenance Due Date Last Done Comments [...] Most Recently Relevant to Health Maintenance Insurance [facility] MEDICAID STAND ADULT
--- OUTSIDE RECORDS SUMMARY | 2025-01-01 12:53 | XMS_ITS | Clinical Summary ---
Author Organization [facility] Address [address] [place] [address] Care Team Providers Care Security Intelligence Analyst Name Role Phone Abbi Valenzuela MD Primary Care Provider [phone] Allergies No known active allergies Medications ibuprofen (ADVIL,MOTRIN) 600 mg tablet Take 1 tablet (600 mg total) by mouth every 6 (six) hours if needed (Pain). 3 Active bisacodyL (Dulcolax, bisacodyl,) 5 mg EC tablet Take 4 tablets by mouth at 6pm on the evening before your procedure 1 Active clotrimazole (LOTRIMIN) 1 % cream Apply topically 2 (two) times a day. Use twice a day on affected areas x 7 days. 1 Active famciclovir (FAMVIR) 500 mg tablet Take 1 tablet (500 mg total) by mouth. See Admin Instructions. Patient is to take 1 tab twice daily for 10 days during herpes breakout/flares 3 Active polyethylene glycol (Miralax) 17 gram/dose oral powder Empty entire bottle into 64 ounces of Gatorade. Starting at 8 PM, drink 8 oz glass of the prep every 15 minutes until the bottle is completely emptied 1 Active tadalafiL (Cialis) 5 mg tablet 8 Active Active Problems Problem Noted Date Diagnosed Date External hemorrhoid 10/06/2020 Genital herpes 10/21/2011 Erectile dysfunction 10/21/2011 Overview (09/09/2024): Follows with urologist. Immunizations Name Administration Dates Next Due Tdap Tetanus diptheria acell ular pertussis (Boostrix; Adacel) 7yo and older 04/12/2023,01/27/2012 Surgical History Surgery Date Site/Laterality Comments OTHER SURGICAL HISTORY PROCEDURE: AK EXC B9 LESION MRGN XCP SK TG F/E/E/N/L/M 0.5CM/< COLONOSCOPY 12/15/2020 PROCEDURE: HISTORICAL COLONOSCOPY; COMMENT: negative/repeat in 5 years due to FH CRC Medical History Medical History Date Comments Erectile dysfunction 10/21/2011 DX:Erectile dysfunction Genital herpes DX:Genital herpe s Family history of colon cancer 03/08/2013 D X:Family history of colon cancer; COMMENT: Brother had colon ca at age 55 Family History Medical History Relation Name Comments Diabetes Brother 1 Hypertension Brother 2 Other: hyperlipidemia Brother 3 Colon cancer Brother 4 at age 55 Other: Other Father when pt wa s 4, no details Relation Name Status Comments Brother 1 Brother 2 Brother 3 Brother 4 Brother 5 Father Social History Tobacco Use Types Packs/Day Years Used Date Smoking Tobacco: Former Cigarettes Q uit: 08/31/2017 Smokeless Tobacco: Never Alcohol Use Standard Drinks/Week Comments Yes 0 (1 standard drink = 0.6 oz pur e alcohol) Sex and Gender Information Value Date Recorded Sex Assigned at Not on file Legal Sex Male 1:03 AM EST Gender Identity Not on file Sexual Orientation Not on file Obstetrics History Last Filed Vital Signs Vital Sign Reading Time Taken Comments Blood Pressure 128/78 04/12/2023 4:13 PM EDT Pulse 88 04/12/2023 4:13 PM EDT Temperature - - Respiratory Rate - - Oxygen Saturation - - Inhaled Oxygen Concentration - - Weight 75.8 kg (167 lb) 04/12/2023 4:13 PM EDT Height 172.7 cm (5' 8 ) 04/12/2023 4:13 PM EDT Body Mass Index 25.39 04/12/2023 4:13 PM EDT Plan of Treatment Upcoming Encounters Date Type Department Care Team (Late st Contact Info) Description 01/29/2025 4:30 PM EDT Office Visit Adult Medicine [facility] [address] [place], [place] [phone] Brandon Carolina NP [address], [place] Health Maintenance Due Date Last Done Comments Hepatitis B Vaccines (1 of 3 - 19+ 3-dose series) 1986 Pneumococcal Vaccine: 50+ Years (1 of 1 - PCV) 2017 Zoster Vaccines (1 of 2) 2017 Cholesterol Screening (Lipid Panel) 08/20/2022 06/27/2015 Depression Screening 08/20/2022 Hepatitis C Screening 08/20/2022 Social Influencers of Health Screening 08/20/2022 COVID-19 Vaccine (1 - 2023-2 5 season) 2024 Influenza Vaccine (Season Ended) 2025 Colorectal Cancer Screening: Colonoscopy 12/15/2025 12/15/2020 DTaP,Tdap,and Td Vaccines (3 - Td or Tdap) 04/12/2033 04/12/2023, 01/27/2012 HIV Screening Completed 01/28/2012 HIB Vaccines Aged Out No longer eligi [...] on patient's age to complete this topic MMR Vaccines Aged Out No longer eligi ble based on patient's age to complete this topic Meningococcal ACWY Vaccine Aged Out N o longer eligible based on patient's age to complete this topic Meningococcal B Vaccine Aged Out No l onger eligible based on patient's age to complete this topic Pneumococcal Vaccine: Pediatrics (0 to 5 Years) and At-Risk Patients (6 to 64 Years) Aged Out No longer eligible b ased on patient's age to complete this topic RSV Immunization Patients Under 20 months Aged Out No longer eligible b ased on patient's age to complete this topic Varicella Vaccines Aged Out No longer eligible based on patient's age to complete this topic Procedures Procedure Name Priority Date/Time Associated Diagnosis Comments COLONOSCOPY Routine 12/15/2020 LIPID PANEL Routine 06/27/2015 HIV SCREENING Routine 01/28/2012 from Last 3 Months or Most Recently Relevant to Health Maintenance Results * Colonoscopy (12/15/2020) Colonoscopy No interpretation , abstracted Anatomical Region Laterality Modality Other Historical Provider HEALTH MAINTENANCE Final Result * (ABNORMAL) Lipid panel (06/27/2015) LDL/HDL Ratio 4 0 - 4 Triglycerides 71 0 - 150 mg/dL Cholesterol 201(A) 0 - 200 mg/dL HDL 53 >=40 mg/dL LDL Cholesterol 134(A) 0 - 100 mg/dL Blood Venous blood specimen / Unknown Historical Provider LAB BLOOD ORDERABLES Maggie l Result * HIV Screening (01/28/2012) Pathologist [facility] HIV Screening Abstracted Historical Provider HEALTH MAINTENANCE Final Result from Last 3 Months or Most Recently Relevant to Health Maintenance Insurance [facility] [address] [place] [id number] Care Teams Security Intelligence Analyst Relationship Specialty Start Date End Date Abbi Valenzuela MD [address] [place] [address] PCP - General Internal Medicine 10/12/11
== END 2025-01-01 11:23 | disposition home or self-care (01) ==
LOC: HO.HUSH 10:49
PROVIDERS: PCP Internal Medicine; Visit Provider Urology
DX: N40.1 Benign prostatic hyperplasia with lower urinary tract symptoms (principal); N13.8 Other obstructive and reflux uropathy; N52.9 Male erectile dysfunction, unspecified; N20.0 Calculus of kidney
CPT/HCPCS: 99213

== ENCOUNTER → 2025-01-01 10:48 | Outpatient (BNVA) | payer OTHER, SELFPAY | PROVIDERS: PCP Internal Medicine; Visit Provider Urology ==